=== PATIENT | female | born 2000 | race African-American/Black ===

== ENCOUNTER 2021-01-05 10:06 | Emergency (ER) | payer OTHER ==
[~2021-01-05] VITALS: Ht 152.4 cm; Wt 52.6 kg
[2021-01-05 11:09] LABS: URINE BILIRUBIN NEGATIVE (Negative); URINE BLOOD 3+ (Negative); URINE CLARITY CLOUDY; URINE COLOR YELLOW; URINE GLUCOSE-RANDOM* NEGATIVE (Negative); URINE KETONES NEGATIVE (Negative); URINE LEUKOCYTES-REFLEX NEGATIVE (Negative); URINE NITRITE-REFLEX NEGATIVE (Negative); URINE PROTEIN (DIPSTICK) 2+ (Negative); URINE SPECIFIC GRAVITY >= 1.030 (1.005-1.035); URINE UROBILINOGEN 0.2 E.U./dl (0.2-1.0)
[2021-01-05 11:22] LABS: ABSOLUTE NEUTROPHILS 3.9 thou/uL (1.4-8.2); BASOPHILS 0.5 % (0.0-2.0); EOSINOPHILS 1.4 % (0.0-3.0); HEMATOCRIT 34.2 % (37.0-47.0); HEMOGLOBIN 10.7 gm/dL (12.0-15.0); MCH 22.2 pg (26.0-34.0); MCHC 31.4 g/dL (28.0-37.0); MCV 70.8 fL (80.0-100.0); PLATELET COUNT 241 thou/uL (150-400); POLYS 55.1 % (36.0-66.0); RBC 4.83 mil/uL (4.20-5.00); RDW 21.3 % (10.5-14.5)
[2021-01-05 11:35] LABS: CALCIUM 8.5 mg/dL (8.5-10.1); CREATININE 0.6 mg/dL (0.6-1.0); POTASSIUM 3.6 mmol/L (3.5-5.1)
[2021-01-05 11:37] LABS: CASTS None Seen /LPF (None Seen); SQUAMOUS 4-10 Moderate /LPF (0-3)
[2021-01-05 11:38] LABS: URINE RBC >20 Many /HPF (NONE SEEN); URINE WBC-REFLEX 0-5 Rare /HPF (0-5)
[2021-01-05 11:39] LABS: BACTERIA-REFLEX >30 Many /HPF (None Seen); CRYSTALS None Seen /LPF (None Seen)
[2021-01-05 11:41] LABS: ALBUMIN 3.6 g/dL (3.4-5.0); TOTAL BILIRUBIN 0.3 mg/dL (0.2-1.0); TOTAL PROTEIN 7.1 g/dL (6.4-8.2)
[2021-01-05 12:12] LABS: ANISOCYTOSIS 2+
[2021-01-05 12:13] LABS: HYPOCHROMASIA 1+; MICROCYTES 1+
[2021-01-05] MEDS ORDERED: CEPHALEXIN500 MG PO (12:30)
[2021-01-05 12:47] VITALS: BP 104/64
== END 2021-01-05 12:55 | disposition home or self-care (01) ==
LOC: ER 10:06
PROVIDERS: Emergency Medicine
DX: O20.0 Threatened abortion (principal); Z3A.08 8 weeks gestation of pregnancy

== ENCOUNTER 2021-01-17 13:56 | Emergency (ER) | payer OTHER ==
[~2021-01-17] VITALS: Ht 160 cm; Wt 49.0 kg
[~2021-01-17 13:56] MED LIST: CEPHALEXIN500 MG PO
[2021-01-17 16:45] VITALS: BP 134/65
== END 2021-01-17 16:45 | disposition home or self-care (01) ==
LOC: ER 13:56
DX: O20.0 Threatened abortion (principal); Z3A.08 8 weeks gestation of pregnancy; Z79.899 Other long term (current) drug therapy